=== PATIENT | male | born 1990 | race Asian ===

== ENCOUNTER → 2023-07-11 12:47 | Outpatient (CLI) | payer OTHER, SELFPAY ==
--- NOTE | 2023-07-11 | DI.RAD.S_ITS ---
PROCEDURE: FL SHOULDER INJECTION MR/CT LT INDICATIONS: SHOULD PAIN COMPARISON: None. TECHNIQUE: The indications, alternatives, benefits, risks, and complications of the procedure were explained to the patient. Written informed consent was obtained and placed in the chart. The shoulder was examined fluoroscopically and a site for needle placement chosen for entry into the glenohumeral joint from an anterior approach. The skin was prepped and draped in a sterile fashion, and 1% lidocaine infiltrated from skin down to joint capsule. A spinal needle was inserted into the glenohumeral joint, and a small amount of iodinated contrast media injected to confirm intra-articular placement of the needle tip. This was followed by approximately 12 mL dilute solution of a gadolinium containing MR contrast agent. The needle was removed and a dressing was applied. The patient was given postprocedural instructions and sent to the MR suite for MR imaging. FINDINGS: A single fluoroscopic spot image demonstrates intra-articular location of injected iodinated contrast. IMPRESSION: Successful fluoroscopically guided administration of dilute Gadolinium solution into the shoulder joint for MR arthrogram. Dictated by: Brian Anderson M.D. on 07/11/2023 at 14:27 Approved by: Brian Anderson M.D. on 07/11/2023 at 14:27
--- NOTE | 2023-07-11 | DI.MRI.S_ITS ---
PROCEDURE: MR SHOULDER LT W CON INDICATIONS: LEFT SHOULDER PAIN TECHNIQUE: After the administration of 12 mL of dilute intra-articular Gadolinium contrast, oblique coronal T1 and T2 spin echo with fat saturation, oblique sagittal T1 spin echo with and without fat saturation, oblique sagittal T2 fast spin echo with fat saturation, axial T1 spin echo with fat saturation through the shoulder. COMPARISON: None. FINDINGS: Image quality: Excellent. Rotator cuff: Low to moderate grade articular surface partial-thickness tear involving distal supraspinatus at its insertion on the humeral head is seen extending to musculotendinous junction. Low-grade bursal surface partial-thickness tear involving supraspinatus near musculotendinous junction is also seen. Distal infraspinatus and subscapularis tendons are intact. No full-thickness rotator cuff tendon rupture. No rotator cuff muscle atrophy on sagittal images. Bones and bursae: No bone marrow contusions or fractures. No acromioclavicular joint degeneration. The acromion demonstrates conventional anatomy, without an os acromiale. Capsule and soft tissues: Fraying of superior anterior labrum with contrast extension at 12 to 1 o'clock position is seen suggestive of subtle superior anterior labral tear. glenohumeral ligaments appear intact. The long head of the biceps tendon demonstrates normal location and morphology. The rotator interval appears normal, without fibrosis. The coracohumeral ligament is of normal thickness. No intra-articular bodies. IMPRESSION: 1. Low to moderate grade articular surface partial-thickness tear involving distal supraspinatus extending to musculotendinous junction. Low-grade bursal surface partial-thickness tear involving supraspinatus near musculotendinous junction. No full-thickness rotator cuff tendon rupture. 2. Suggestion of subtle superior anterior left shoulder labral tear at 12 to 1 o'clock position. 3. No marrow edema. No fracture or dislocation. No loose bodies. Dictated by: Brian Anderson M.D. on 07/11/2023 at 14:27 Approved by: Brian Anderson M.D. on 07/11/2023 at 14:29
[2023-07-11] MEDS: LIDOCAINE 1% 20 ML INJ (14:24)
[2023-07-11] MEDS: SODIUM CHLORIDE 0.9 % 20 ML VIAL IV (14:25)
== END ==
DX: M75.112 Incomplete rotator cuff tear or rupture of left shoulder, not specified as traumatic (principal); M25.512 Pain in left shoulder
CPT/HCPCS: 23350; 73040; 73222; A9579; Q9967